=== PATIENT | male | born 1980 | race Caucasian/White ===

== ENCOUNTER 2025-01-27 13:10 | Emergency (ER) | payer BC, SELFPAY ==
[2025-01-27] VITALS (15 sets, daily range): BP systolic 103–239; BP diastolic 60–158; BMI 32.9
[2025-01-27 13:31] LABS: Hematocrit 42.2 % (39.0-52.0); Hemoglobin 14.7 g/dL (13.0-18.0); Mean Corp Hgb Conc. 34.8 g/dL (33.0-37.0); Mean Corpuscular Volume 90.2 fL (80.0-94.0); Nucleated Red Blood Cells % 0 % (-); Platelet Count 338 10^3/uL (130-400); Red Cell Dist. Width 12.6 % (11.5-14.5)
[2025-01-27 13:47] LABS: ALT (SGPT) 33 U/L (0-50); AST (SGOT) 27 U/L (17-59); Albumin 5.2 g/dl (3.5-5.0); Alkaline Phosphatase 50 U/L (38-126); Blood Urea Nitrogen 15 mg/dl (9-20); Calcium 9.6 mg/dl (8.4-10.2); Carbon Dioxide 29 mmol/L (22-30); Chloride 105 mmol/L (98-107); Glucose 112 mg/dl (70-99); Potassium 4.4 mmol/L (3.5-5.1); Sodium 140 mmol/L (135-145); Total Protein 8.0 g/dl (6.3-8.2); eGFR > 60.00
[2025-01-27 13:58] LABS: Troponin I < 0.012 ng/ml
[2025-01-27] MEDS: APRESOLINE 10 MG IV ×2 (17:35→19:18)
[2025-01-27] MEDS: PROCARDIA XL (EXTENDED RELEASE) 30 MG PO (17:41)
--- NOTE | 2025-01-27 20:37 | ED.GENMED ---
History of Present Illness
<Robby Rosa DO - Last Filed: 01/28/25 09:28>
General
Chief Complaint: Blood Pressure Problem
Source: patient and family
Exam Limitations: none
Time Seen by Provider: 01/27/25 17:07
History of Present Illness
History of Present Illness:
Note:
CHIEF COMPLAINT(S)
Extremely elevated blood pressure readings during a work-related physical exam.
HISTORY OF PRESENT ILLNESS
The patient is a 44-year-old male who presented to the emergency department after experiencing extremely high blood pressure readings during a [employer] physical exam for work. Initially, his blood pressure was recorded at
192/138 mmHg, and upon re-evaluation 15-20 minutes later, it increased to 208/155 mmHg. The patient reports feeling well with no symptoms such as dizziness, headaches, chest pain, vision changes, vomiting, or nausea. He has not had his blood
pressure checked in the last two years, during which it was recorded at 130/82 mmHg. Family history is significant for hypertension at a young age. The patient is currently not experiencing any symptoms indicative of acute organ damage such as heart
attack, stroke, or kidney failure.
PAST MEDICAL AND SURIGICAL HISTORY
The patients past medical and surgical history was not discussed.
ADDITIONAL HISTORY OBTAINED FROM SOURCES OTHER THAN THE PATIENT
Per the patients [employer] physical examiner, elevated blood pressure readings were the reason for referral to the emergency department.
CHRONIC MEDICAL CONDITIONS SIGNIFICANTLY AFFECTING CARE
Family history of hypertension at a young age.
SOCIAL HISTORY
The patient occasionally drinks alcohol, but it is not part of his daily routine. 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
PHYSICAL EXAM
- General: Alert, no acute distress.
- Skin: Warm, dry.
- Head: Normocephalic, atraumatic.
- Eye, Ears, Nose, Mouth, and Throat: Oral mucosa moist.
- Cardiovascular: Blood pressure of 190/127 mmHg on exam. Heart rate is regular without murmurs. Normal peripheral perfusion, no edema.
- Respiratory: Respirations are non-labored, lungs clear to auscultation.
- Gastrointestinal: Abdomen nondistended.
- Back: Normal range of motion, normal alignment.
- Musculoskeletal: Normal range of motion, normal strength.
- Neurological: Alert and oriented to person, place, time, and situation, no focal neurological deficit observed.
- Psychiatric: Cooperative, appropriate mood and affect.
PLAN
- Initiate oral antihypertensive therapy using hydralazine to decrease elevated blood pressure.
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
- Encourage follow-up with a primary care physician to manage long-term blood pressure control.
- Reassure the patient that lab results and current heart rate (described as 'nice and slow') are favorable from a cardiac perspective.
- Educate the patient about the importance of managing hypertension to prevent organ damage.
DIFFERENTIAL DIAGNOSIS
The differential diagnosis includes, in no particular order and is not limited to:
- Primary Hypertension
- Secondary Hypertension (possible causes: renal artery stenosis, pheochromocytoma, primary aldosteronism)
- Anxiety-induced Hypertension
- Hypertensive Crisis
- Endocrine Disorders (e.g., Cushings syndrome, hyperthyroidism)
- Renovascular Hypertension
- Coarctation of the Aorta
- Drug-Induced Hypertension
- Obstructive Sleep Apnea-related Hypertension
- Acute Pain or Stress Response leading to increased blood pressure
EKG
My independent EKG interpretation is:
- Rhythm: Normal sinus rhythm
- Heart Rate: 62 bpm
- Tracy: Normal
- Intervals: Normal
- Notable abnormalities: No significant changes or abnormalities observed
Disposition:
SUMMARY OF ENCOUNTER
The patient, a 34-year-old male, presented with asymptomatic severe hypertension, initially recorded at 239/158 mmHg during an outpatient physical exam. Despite being asymptomatic, his blood pressure was significantly elevated. In the emergency
department, initial treatment with IV hydralazine was administered. A second dose was given but not documented in detail. The patients blood pressure eventually decreased to 111/60 mmHg. He remained asymptomatic with a non-focal physical examination
throughout his visit.
PLAN
The patient is advised to monitor his blood pressure at home twice daily and keep a log, since his family has a blood pressure monitoring machine. Follow-up with his primary care physician was recommended, and a prescription for nifedipine to be
taken once daily was initiated.
PATIENT EDUCATION AND COUNSELING
The patient was counseled on the importance of monitoring blood pressure regularly and maintaining a log. Education was provided regarding the importance of follow-up with his primary care physician to manage his blood pressure and the start of
nifedipine therapy.
FOLLOW-UP INSTRUCTIONS
The patient was instructed to follow up with his primary care physician for further management of his hypertension.
MEDICATION RECONCILIATION
Nifedipine was prescribed to be taken once daily.
MEDICAL DECISION MAKING
1. Number and Complexity of Problems Addressed: Chronic conditions affecting care include the patients significant hypertension without acute symptoms. Differential diagnoses from elevated blood pressure could include primary hypertension, secondary
hypertension, and other related conditions.
2. Data:
- Category 1: Initial blood pressure readings, response to treatment with IV hydralazine.
- Category 3: Management discussed with the care team present at the facility.
3. Risk: Prescription medication was prescribed, namely nifedipine for ongoing management of hypertension.
DIAGNOSIS
Essential Hypertension (ICD-10: I10)
Phy Exam
<Robby Rosa, DO - Last Filed: 01/28/25 09:28>
Physical Exam
Physical Exam:
.
Course
<Robby Rosa, DO - Last Filed: 01/28/25 09:28>
Orders/Labs/Results
Orders:
Orders
01/27/25 13:20
Electrocardiogram (*1) Urgent
Reason for Study: Hypertension, Benign
01/27/25 13:21
EKG- Treatment ONCE
01/27/25 13:24
Complete Blood Count/With Diff Urgent
Comprehensive Metabolic Panel Urgent
Troponin I Urgent
01/27/25 17:28
HydrALAZINE [Apresoline] 10 mg IV NOW STA
01/27/25 17:35
NIFEdipine EXTENDED RELEASE [Procardia Xl (Extended Release)] 30 mg PO NOW STA
01/27/25 18:49
HydrALAZINE [Apresoline] 10 mg IV NOW STA
01/27/25 20:37
0.9% Sodium Chloride 1000 ml [Nss] 1,000 ml IV BOLUS
01/27/25 23:41
CT Head W/o Iv Contrast Urgent
Comment:
Reason For Exam: headache, elevated BP
01/27/25 23:43
Acetaminophen [Tylenol] 650 mg PO NOW STA
Abnormal Lab Results
01/27/25
13:24
RBC 4.68 L 10^6/uL
(4.70-6.10)
MCH 31.4 H pg
(27.0-31.0)
Glucose 112 H mg/dl
(70-99)
Albumin 5.2 H g/dl
(3.5-5.0)
01/27/25 13:24
01/27/25 13:24
Vital Signs
Initial and Last Documented VS:
Initial Vital Signs
Temp
98.0 F
01/27/25 13:10
Last Documented Vital Signs
Temp Pulse Resp BP Pulse Ox
98.1 F 81 13 146/96 97
01/28/25 01:18 01/28/25 01:00 01/28/25 01:00 01/28/25 01:00 01/28/25 01:00
<Solitario Borja, DO - Last Filed: 01/28/25 01:13>
Orders/Labs/Results
Orders:
Orders
01/27/25 13:20
Electrocardiogram (*1) Urgent
Reason for Study: Hypertension, Benign
01/27/25 13:21
EKG- Treatment ONCE
01/27/25 13:24
Complete Blood Count/With Diff Urgent
Comprehensive Metabolic Panel Urgent
Troponin I Urgent
01/27/25 17:28
HydrALAZINE [Apresoline] 10 mg IV NOW STA
01/27/25 17:35
NIFEdipine EXTENDED RELEASE [Procardia Xl (Extended Release)] 30 mg PO NOW STA
01/27/25 18:49
HydrALAZINE [Apresoline] 10 mg IV NOW STA
01/27/25 20:37
0.9% Sodium Chloride 1000 ml [Nss] 1,000 ml IV BOLUS
01/27/25 23:41
CT Head W/o Iv Contrast Urgent
Comment:
Reason For Exam: headache, elevated BP
01/27/25 23:43
Acetaminophen [Tylenol] 650 mg PO NOW STA
Abnormal Lab Results
01/27/25
13:24
RBC 4.68 L 10^6/uL
(4.70-6.10)
MCH 31.4 H pg
(27.0-31.0)
Glucose 112 H mg/dl
(70-99)
Albumin 5.2 H g/dl
(3.5-5.0)
01/27/25 13:24
01/27/25 13:24
Vital Signs
Initial and Last Documented VS:
Initial Vital Signs
Temp
98.0 F
01/27/25 13:10
Last Documented Vital Signs
Temp Pulse Resp BP Pulse Ox
98.1 F 81 13 146/96 97
01/28/25 01:18 01/28/25 01:00 01/28/25 01:00 01/28/25 01:00 01/28/25 01:00
<Robby Rosa DO - Last Filed: 01/28/25 09:28>
*Pulse Oximetry
SaO2: 98
Oxygen Mode of Delivery: Room air
Patient hypoxic: no
*Critical Care Note
Total Time (30-74mins, 75-104mins- exclusive of procedures): 30 minutes
<Solitario Borja, DO - Last Filed: 01/28/25 01:13>
Update Note
Update Note:
Received patient in signout pending repeat blood pressure. Patient complained of headache as well, CT head obtained due to first-time headache no signs of intracranial hemorrhage or tumor patient asymptomatic after receiving Tylenol stable for
discharge follow-up with primary care. Nifedipine prescribed.
ED Attending Note
<Robby Rosa, DO - Last Filed: 01/28/25 09:28>
-
Portions of this chart may have been created with voice recognition software.� Occasional wrong word or��sound alike� substitutions may have occurred due to the inherent limitations of voice recognition software.
Discharge Plan
Departure
Patient Disposition: Home (Routine Discharge)
Date of Disposition: 01/27/25
Time of Disposition: 20:40
Patient with high blood pressure during this ER visit?: Yes
Discharge Problem:
Hypertensive urgency
Instructions: High Blood Pressure (DC), BLOOD PRESSURE
Prescriptions:
No Action
No Current Medications
0
Referrals:
NONE,* [Family Provider, Internal Medicine]
Activity Restrictions/Additional Instructions:
Your blood pressure was elevated while in the Emergency Department, please have your doctor re-evaluate it in the next 48 hours as untreated hypertension may lead to serious complications.
Return immediately for chest pain, shortness of breath, palpitations, vision changes, change in mentation or any other concerns.
Please keep a log of your blood pressure twice a day. Please initiate the blood pressure medication tomorrow if your blood pressure is above 130/85. If your blood pressure is below this number, hold initiation of your blood pressure medications
until seen by your doctor.
Interventions
Interventions:
*Risk Screen - Suicide Last Done: 01/27/25 13:19
*General Assessment Last Done: 01/27/25 13:19
*Neglect/Abuse Screening Last Done: 01/27/25 13:19
*ED- Fall Risk Assessment Last Done: 01/27/25 17:20
*ED COVID-19 Vaccine History Last Done: 01/27/25 13:19
*ED Influenza Vaccine History Last Done: 01/27/25 13:19
*Nursing Disposition Last Done: 01/28/25 01:18
ED- Cardiac Assessment Last Done: 01/27/25 20:17
ED- Neurological Assessment Last Done: 01/27/25 20:17
ED- Pulmonary Assessment Last Done: 01/27/25 20:17
Discharge Date and Time
Discharge Date/Time: 01/28/25 01:20
Print Language: [id number]
[2025-01-27] MEDS: NSS 1000 IV (20:53)
[2025-01-27] MEDS: TYLENOL 650 MG PO (23:45)
[2025-01-28 00:34] VITALS: BP 156/97
[2025-01-28 01:00] VITALS: BP 146/96
== END 2025-01-28 01:20 | disposition home or self-care (01) ==
LOC: EMR 13:10
PROVIDERS: Emergency Medicine; EMERGENCY PHYSICIAN Emergency Medicine
DX: I16.0 Hypertensive urgency (principal); I10 Essential (primary) hypertension; Z82.49 Family history of ischemic heart disease and other diseases of the circulatory system
CPT/HCPCS: 99284; 96374; 96375; 96361; 70450; 80053; 84484; 85025; 93005; 96376